=== PATIENT | female | born 1995 | race Caucasian/White ===

== ENCOUNTER 2016-09-30 09:02 | Emergency (ER) | payer BC, OTHER ==
[~2016-09-30 09:02] MED LIST: CALC300T5 PO; FAMO-63 PO; HYDR-971 PO
[2016-09-30] MEDS ORDERED: IV NORMAL SALINE 1,000ML 1,000 ML IV SCH (09:45)
[2016-09-30 09:51] LABS: BASO # 0.1 x10^3/uL (0.0-0.2); BASO % 1 % (0-3); EOS # 0.1 x10^3/uL (0.0-0.7); EOS % 2 % (0-3); HEMATOCRIT 42.3 % (36.0-47.0); HEMOGLOBIN 14.3 g/dL (12.0-15.5); LYMPH # 2.4 x10^3/uL (1.0-4.8); LYMPH % 36 % (24-48); MEAN CORPUSCULAR HEMOGLOBIN 28 pg (25-35); MEAN CORPUSCULAR HGB CONC 34 g/dL (31-37); MEAN CORPUSCULAR VOLUME 83 fL (79-100); MONO # 0.4 x10^3/uL (0.0-1.1); MONO % 6 % (0-9); NEUT # 3.6 x10^3uL (1.8-7.7); NEUT % 55 % (31-73); PLATELET COUNT 168 x10^3/uL (140-400); RED BLOOD COUNT 5.13 x10^6/uL (3.50-5.40); RED CELL DISTRIBUTION WIDTH 16.1 % (11.5-14.5); WHITE BLOOD COUNT 6.5 x10^3/uL (4.0-11.0)
[2016-09-30] MEDS ORDERED: IOHEXOL 300 MG/ML 75 ML VIAL. IV ONE (10:00)
[2016-09-30 10:02] LABS: ALBUMIN 4.1 g/dL (3.4-5.0); ALBUMIN/GLOBULIN RATIO 1.2 (1.0-1.7); CALCIUM 9.5 mg/dL (8.5-10.1); CREATININE 0.7 mg/dL (0.6-1.0); GFR 103.7; POTASSIUM 3.9 mmol/L (3.5-5.1); TOTAL BILIRUBIN 0.2 mg/dL (0.2-1.0); TOTAL PROTEIN 7.4 g/dL (6.4-8.2)
[2016-09-30] MEDS ORDERED: CONTRAST GIVEN MC PRN (10:15)
[2016-09-30 10:38] LABS: BACTERIA,URINE MOD /HPF (0-FEW); BILIRUBIN,URINE NEG (NEG); CLARITY,URINE HAZY; COLOR,URINE YELLOW; GLUCOSE,URINE NEG (NEG); NITRITE,URINE NEG (NEG); SQUAMOUS EPITHELIAL CELL,UR MOD /LPF; UROBILINOGEN,URINE 0.2 mg/dL (0.2 mg/dL)
--- NOTE | 2016-09-30 10:59 | PHYS DOC ---
Past History Past Medical History: No Pertinent History Past Surgical History: Smoking: Less than 1pk/day Alcohol Use: None Drug Use: None Adult General Chief Complaint Chief Complaint: ABDOMINAL PAIN HPI HPI This 21-year-old lady presents with abdominal pain for the past 2 weeks. She states her abdominal pain has been diffuse. She states she had fever last week and can't sleep or eat because of the pain. She is currently on her menstrual period. She denies any dysuria. She denies vaginal discharge. She does not think she is Review of Systems Review of Systems Constitutional: Denies fever or chills [] Eyes: Denies change in visual acuity, redness, or eye pain [] HENT: Denies nasal congestion or sore throat [] Respiratory: Denies cough or shortness of breath [] Cardiovascular: No additional information not addressed in HPI [] GI: See history of present illness [] : Denies dysuria or hematuria [] Musculoskeletal: Denies back pain or joint pain [] Integument: Denies rash or skin lesions [] Neurologic: Denies headache, focal weakness or sensory changes [] Endocrine: Denies polyuria or polydipsia [] Current Medications Current Medications Current Medications Medications (Trade) Dose Ordered Sig/Toy Start Time Stop Time Status Last Admin Dose Admin Info (Do NOT chart on this entry -- for MONITORING) 1 each PRN DAILY PRN 09/30/16 10:15 10/02/16 10:14 Iohexol (Omnipaque 300 Mg/ml) 75 ml 1X ONCE 09/30/16 10:00 09/30/16 10:01 DC 09/30/16 10:47 75 ML Sodium Chloride 1,000 ml @ 1,000 mls/hr Q1H 09/30/16 09:45 09/30/16 10:44 DC Allergies Allergies Allergies Coded Allergies Type Severity Reaction Last Updated Verified Penicillins Allergy Intermediate hives 05/05/16 Yes amoxicillin Allergy Intermediate hives 05/05/16 Yes morphine Allergy Intermediate rash 02/26/16 Yes codeine Allergy Unknown throat swelling 02/26/16 Yes Physical Exam Physical Exam Constitutional: Well developed, well nourished, no acute distress, non-toxic appearance. [] HENT: Normocephalic, atraumatic, bilateral external ears normal, oropharynx moist, no oral exudates, nose normal. [] Eyes: PERRLA, EOMI, conjunctiva normal, no discharge. [] Neck: Normal range of motion, no tenderness, supple, no stridor. [] Cardiovascular:Heart rate regular rhythm, no murmur [] Lungs & Thorax: Bilateral breath sounds clear to auscultation [] Abdomen: Bowel sounds are normal patient has some tenderness in the left mid abdomen and left lower quadrant there is no rebound or guarding Skin: Warm, dry, no erythema, no rash. [] Back: No tenderness, no CVA tenderness. [] Extremities: No tenderness, no cyanosis, no clubbing, ROM intact, no edema. [] Neurologic: Alert and oriented X 3, normal motor function, normal sensory function, no focal deficits noted. [] Psychologic: Affect normal, judgement normal, mood normal. [] Pelvic examination reveals there is some blood in the vault, cervix is closed and there is no cervical motion tenderness to movement The right adnexa feels clear the left adnexa is tender but I feel no masses Current Patient Data Lab Results Laboratory Tests Test 09/30/16 09:39 09/30/16 10:05 White Blood Count 6.5 x10^3/uL (4.0-11.0) Red Blood Count 5.13 x10^6/uL (3.50-5.40) Hemoglobin 14.3 g/dL (12.0-15.5) Hematocrit 42.3 % (36.0-47.0) Mean Corpuscular Volume 83 fL (79-100) Mean Corpuscular Hemoglobin 28 pg (25-35) Mean Corpuscular Hemoglobin Concent 34 g/dL (31-37) Red Cell Distribution Width 16.1 % (11.5-14.5) H Platelet Count 168 x10^3/uL (140-400) Neutrophils (%) (Auto) 55 % (31-73) Lymphocytes (%) (Auto) 36 % (24-48) Monocytes (%) (Auto) 6 % (0-9) Eosinophils (%) (Auto) 2 % (0-3) Basophils (%) (Auto) 1 % (0-3) Neutrophils # (Auto) 3.6 x10^3uL (1.8-7.7) Lymphocytes # (Auto) 2.4 x10^3/uL (1.0-4.8) Monocytes # (Auto) 0.4 x10^3/uL (0.0-1.1) Eosinophils # (Auto) 0.1 x10^3/uL (0.0-0.7) Basophils # (Auto) 0.1 x10^3/uL (0.0-0.2) Sodium Level 141 mmol/L (136-145) Potassium Level 3.9 mmol/L (3.5-5.1) Chloride Level 106 mmol/L (98-107) Carbon Dioxide Level 26 mmol/L (21-32) Anion Gap 9 (6-14) Blood Urea Nitrogen 9 mg/dL (7-20) Creatinine 0.7 mg/dL (0.6-1.0) Estimated GFR (Cockcroft-Gault) 103.7 BUN/Creatinine Ratio 13 (6-20) Glucose Level 94 mg/dL (70-99) Calcium Level 9.5 mg/dL (8.5-10.1) Total Bilirubin 0.2 mg/dL (0.2-1.0) Aspartate Amino Transferase (AST) 9 U/L (15-37) L Alanine Aminotransferase (ALT) 15 U/L (14-59) Alkaline Phosphatase 83 U/L (46-116) Total Protein 7.4 g/dL (6.4-8.2) Albumin 4.1 g/dL (3.4-5.0) Albumin/Globulin Ratio 1.2 (1.0-1.7) Lipase 59 U/L (73-393) L Urine Collection Type U cath Urine Color Yellow Urine Clarity Hazy Urine pH 5.5 Urine Specific [place] 1.025 Urine Protein Neg (NEG-TRACE) Urine Glucose (UA) Neg mg/dL (NEG) Urine Ketones (Stick) Neg mg/dL (NEG) Urine Blood Trace (NEG) Urine Nitrite Neg (NEG) Urine Bilirubin Neg (NEG) Urine Urobilinogen Dipstick 0.2 mg/dL (0.2 mg/dL) Urine Leukocyte Esterase Neg (NEG) Urine RBC 3-5 /HPF (0-2) Urine WBC 5-10 /HPF (0-4) Urine Squamous Epithelial Cells Mod /LPF Urine Bacteria Mod /HPF (0-FEW) Urine Mucus Marked /LPF EKG EKG [] Radiology/Procedures Radiology/Procedures [] Impressions: Abdominal pain UTI Course & Med Decision Making Course & Med Decision Making Patient presents with abdominal pain which is more in the left side Her examination reveals some slight left-sided abdominal tenderness Her CBC is normal her urinalysis shows 5-10 white cells per high-power field CT scan of the abdomen and pelvis is negative Patient be placed on Cipro Hydrocodone/APAP Rest and follow-up with her doctor [] Nico Disclaimer Dragon Disclaimer This chart was dictated in whole or in part using Voice Recognition software in a busy, high-work load, and often noisy Emergency Department environment. It may contain unintended and wholly unrecognized errors or omissions. Departure Departure: Referrals: HIMANSHU FRANCO (PCP) ANGELINE LEON MD September 30, 2016 10:59
--- NOTE | 2016-09-30 11:11 | RAD ---
CT of the abdomen and pelvis with contrast, 09/30/2016: History: Left-sided abdominal pain with nausea and vomiting Multidetector CT imaging was performed following an IV bolus injection of iodinated contrast material. No oral contrast material was administered for this study. Comparison is made to a study from 02/26/2016. There is a tiny subcentimeter low-density lesion in the inferior aspect of the right lobe liver. It is too small to definitively characterize, but is probably a cyst. The gallbladder is unremarkable. No pancreatic abnormality is seen. The spleen is of normal size. No renal or adrenal abnormality is detected. The aorta is unremarkable. No abdominal or pelvic adenopathy is seen. The uterus and ovaries are unremarkable. The bowel loops are not dilated. The appendix shows no abnormality. No free fluid or free air is evident in the abdomen or pelvis. IMPRESSION: No acute abdominal or pelvic abnormality is detected. PQRS Compliance Statement: One or more of the following individualized dose reduction techniques were utilized for this examination: 1. Automated exposure control 2. Adjustment of the mA and/or kV according to patient size 3. Use of iterative reconstruction technique
[2016-09-30] MEDS ORDERED: HYDR-2758 PO (11:30)
[2016-09-30] MEDS ORDERED: CIPR500T94 PO (11:32)
[2016-09-30 11:58] VITALS: BP 110/78
== END 2016-09-30 12:13 | disposition home or self-care (01) ==
LOC: ER 09:02
DX: N39.0 Urinary tract infection, site not specified (principal); F17.200 Nicotine dependence, unspecified, uncomplicated; Z98.890 Other specified postprocedural states; Z88.5 Allergy status to narcotic agent; Z88.1 Allergy status to other antibiotic agents; Z88.0 Allergy status to penicillin
CPT/HCPCS: 36415; 51701; 74177; 80053; 81001; 83690; 85027; 87086; 96360; 99285; Q9967; J7030

== ENCOUNTER 2016-10-16 10:47 | Emergency (ER) | payer BC ==
[~2016-10-16 10:47] MED LIST changes: +CIPR500T94 PO; +HYDR-2758 PO
[2016-10-16] MEDS ORDERED: PROMETHAZINE 25 MG/ML VIAL IV ONE (11:31)
[2016-10-16] MEDS ORDERED: IV NORMAL SALINE 50ML 50 ML ONE (11:31)
[2016-10-16 11:42] LABS: BASO # 0.1 x10^3/uL (0.0-0.2); BASO % 1 % (0-3); EOS # 0.1 x10^3/uL (0.0-0.7); EOS % 1 % (0-3); HEMATOCRIT 42.1 % (36.0-47.0); LYMPH % 16 % (24-48); MEAN CORPUSCULAR HEMOGLOBIN 27 pg (25-35); MEAN CORPUSCULAR HGB CONC 33 g/dL (31-37); MEAN CORPUSCULAR VOLUME 82 fL (79-100); MONO # 0.8 x10^3/uL (0.0-1.1); MONO % 6 % (0-9); NEUT # 10.1 x10^3uL (1.8-7.7); NEUT % 77 % (31-73); PLATELET COUNT 174 x10^3/uL (140-400); RED BLOOD COUNT 5.13 x10^6/uL (3.50-5.40); RED CELL DISTRIBUTION WIDTH 16.3 % (11.5-14.5); WHITE BLOOD COUNT 13.1 x10^3/uL (4.0-11.0)
[2016-10-16 11:48] LABS: ALBUMIN/GLOBULIN RATIO 1.2 (1.0-1.7); CALCIUM 9.4 mg/dL (8.5-10.1); CREATININE 0.6 mg/dL (0.6-1.0); GFR 123.9; TOTAL BILIRUBIN 0.3 mg/dL (0.2-1.0); TOTAL PROTEIN 7.4 g/dL (6.4-8.2)
[2016-10-16 11:49] LABS: POTASSIUM 3.9 mmol/L (3.5-5.1)
[2016-10-16] MEDS ORDERED: ONDANSETRON PF 4 MG/2 ML VIAL. IV ONE ×2 (12:00→20:00)
[2016-10-16] MEDS ORDERED: KETOROLAC 30 MG/ML VIAL. IV ONE (12:00)
[2016-10-16] MEDS ORDERED: DICYCLOMINE 20 MG/2 ML AMPUL. IM ONE (12:00)
[2016-10-16] MEDS ORDERED: LIDO:MAALOX 1:1 20 ML SINGLE DOSE PO ONE (12:00)
[2016-10-16] MEDS ORDERED: FAMOTIDINE 20 MG/2 ML VIAL IVP ONE (12:00)
[2016-10-16] MEDS ORDERED: PROMETHAZINE 25 MG in IV NORMAL SALINE 50ML 50 ML IV PRN (12:00)
--- NOTE | 2016-10-16 12:09 | RAD ---
Abdomen series with chest, 3 views, 10/16/2016: History: Abdominal pain with nausea and vomiting Gas is present in large and small bowel without significant bowel distention. Several small air-fluid levels are noted in the right midabdomen. No free air seen in the abdomen. There is no evidence of organomegaly or abnormal abdominal calcification. The heart size is normal. The lungs are clear. There is no evidence of pleural fluid. IMPRESSION: 1. Several air-fluid levels in the right midabdomen suggest a mild localized ileus. 2. The abdomen series is otherwise unremarkable.
--- NOTE | 2016-10-16 12:33 | PHYS DOC ---
General Chief Complaint: ABDOMINAL PAIN Stated Complaint: ABD PAIN Time Seen by MD: 11:03 Source: patient, old records Exam Limitations: no limitations Problems: History of Present Illness Initial Comments Patient is a 21-year-old female who returns complaining of abdominal pain. Patient was seen last week for similar symptoms, she states that this morning she developed severe epigastric pain. She denies travel or exotic by mouth intake, no vomiting or diarrhea no fever chills sweats or myalgias no chest pain or trouble breathing. Patient is crying as I enter the exam room clutching at her abdomen as if in severe pain. Patient is known to ED staff, her RN walked in to the department from the parking lot with her and they struck up a conversation. The patient told RN that she was coming due to abdominal pain and "I ran out of hydrocodone." RN states the patient was walking upright she was smiling without any evidence of severe discomfort. Timing/Duration: unsure Severity: severe Modifying Factors: improves with other Associated Symptoms: other Allergies: Coded Allergies: Penicillins (Verified Allergy, Intermediate, hives, 05/05/16) amoxicillin (Verified Allergy, Intermediate, hives, 05/05/16) morphine (Verified Allergy, Intermediate, rash, 02/26/16) codeine (Verified Allergy, Unknown, throat swelling, 02/26/16) "TOLERATED LORTAB IN THE PAST" per patient interview by ED RN Past Medical History Medical History: no pertinent history, other (anxiety, depression) Surgical History: noncontributory Family History Significant Family History: no pertinent family hx Social History Smoker: cigarettes Alcohol: occasionally Drugs: none Review of Systems Constitutional: denies chills, denies diaphoresis, denies fever, denies malaise Respiratory: denies cough, denies shortness of breath Cardiovascular: denies chest pain Gastrointestinal: see HPI Genitourinary: denies discharge, denies frequency, denies pain Musculoskeletal: denies back pain, denies joint swelling, denies muscle pain, denies neck pain Psychiatric/Neurological: denies headache, denies numbness, denies paresthesia Hematologic/Lymphatic: denies blood clots, denies easy bleeding, denies easy bruising Physical Exam General Appearance: WD/WN, no apparent distress (cries in exam room initially) Eyes: bilateral eye normal inspection, bilateral eye PERRL, bilateral eye EOMI Ear, Nose, Throat: hearing grossly normal, normal ENT inspection, normal pharynx Neck: non-tender, supple Respiratory: normal breath sounds, no respiratory distress Cardiovascular: normal peripheral pulses, regular rate, rhythm Gastrointestinal: normal bowel sounds, non tender, soft, no organomegaly, no pulsatile mass Rectal: deferred Back: no CVA tenderness, no vertebral tenderness Extremities: non-tender, normal inspection Neurologic/Psychiatric: talent acquisition specialist II-XII nml as tested, no motor/sensory deficits, alert, normal mood/affect, oriented x 3 Skin: normal color, warm/dry Orders, Labs, Meds PATIENT: SILVANA FERGUSON ACCOUNT: [id number] : 1995 LOCATION: ER AGE: 21 SEX: F EXAM STATUS: REG ER ORD. PHYSICIAN: BRIGID BASURTO DO REASON: abdominal pain PROCEDURE: ACUTE ABDOMEN SERIES Abdomen series with chest, 3 views, 10/16/2016: History: Abdominal pain with nausea and vomiting Gas is present in large and small bowel without significant bowel distention. Several small air-fluid levels are noted in the right midabdomen. No free air seen in the abdomen. There is no evidence of organomegaly or abnormal abdominal calcification. The heart size is normal. The lungs are clear. There is no evidence of pleural fluid. IMPRESSION: 1. Several air-fluid levels in the right midabdomen suggest a mild localized ileus. 2. The abdomen series is otherwise unremarkable. DICTATED AND SIGNED BY: RENUKA ALONZO MD DATE: 10/16/16 1207 CC: HIMANSHU FRANCO; BRIGID BASURTO DO ~ Reassuring ED workup. No new or progressive symptoms. Patient advised to stop smoking she expressed agreement and understanding with treatment plan Departure Time of Disposition: 12:54 Disposition: 01 HOME, SELF-CARE Diagnosis: gastroenteritis, marijuana abuse, tobaccoism Condition: GOOD Patient Instructions: Marijuana Abuse and Chemical Dependency, Smoking Hazards , Viral Gastroenteritis, [id number] Additional Instructions: Stop smoking, seek medical assistance if necessary. OTC probiotics or cultured yogurt (danimals, gogurt) daily. OTC tylenol as needed. Discontinue marijuana abuse, significant medical assistance if necessary. Clear liquids, advance slowly to a bland diet tomorrow as tolerated. Aggressive hydration with Gatorade or water. Prescriptions: Zofran ODT, dicyclomine Follow up with your doctor next week if not better. May need further nonemergent workup as an outpatient with gastroenterology and/or general surgery. Return to the ED with new or changing symptoms BRIGID BASURTO DO Oct 16, 2016 12:32
[2016-10-16 12:43] LABS: AMPHETAMINE/METHAMPHETAMINE NEG (NEG); BARBITURATES NEG (NEG); BENZODIAZEPINES NEG (NEG); CANNABINOIDS POS (NEG); COCAINE NEG (NEG); METHADONE NEG (NEG); OPIATES NEG (NEG); PHENCYCLIDINE NEG (NEG)
[2016-10-16 12:44] LABS: BILIRUBIN,URINE NEG (NEG); CLARITY,URINE HAZY; COLOR,URINE YELLOW; GLUCOSE,URINE NEG (NEG); NITRITE,URINE NEG (NEG); UROBILINOGEN,URINE 0.2 mg/dL (0.2 mg/dL)
[2016-10-16 12:45] LABS: BACTERIA,URINE FEW /HPF (0-FEW); RBC,URINE 0 /HPF (0-2); SQUAMOUS EPITHELIAL CELL,UR MANY /LPF
[2016-10-16 14:09] VITALS: BP 108/64
== END 2016-10-16 13:05 | disposition home or self-care (01) ==
LOC: ER 10:47
DX: K52.9 Noninfective gastroenteritis and colitis, unspecified (principal); F12.10 Cannabis abuse, uncomplicated; F17.210 Nicotine dependence, cigarettes, uncomplicated; Z88.5 Allergy status to narcotic agent; Z88.6 Allergy status to analgesic agent; Z88.1 Allergy status to other antibiotic agents; Z88.0 Allergy status to penicillin
CPT/HCPCS: 36415; 74022; 80053; 80305; 80320; 81001; 83690; 85027; 96365; 96372; 96375; 99285; J0500; J1885; J2405; J2550; S0028; G0481

== ENCOUNTER 2018-02-19 09:56 | Emergency (ER) | payer BC ==
[~2018-02-19] VITALS: Ht 157.5 cm; Wt 54.4 kg
[2018-02-19] MEDS ORDERED: IV NORMAL SALINE 1,000ML 1,000 ML IV ONE (11:15)
[2018-02-19 11:30] VITALS: BP 116/72
[2018-02-19 11:31] LABS: BASO # 0.1 x10^3/uL (0.0-0.2); BASO % 1 % (0-3); EOS # 0.1 x10^3/uL (0.0-0.7); EOS % 1 % (0-3); HEMATOCRIT 45.3 % (36.0-47.0); HEMOGLOBIN 15.1 g/dL (12.0-15.5); LYMPH # 2.6 x10^3/uL (1.0-4.8); LYMPH % 27 % (24-48); MEAN CORPUSCULAR HEMOGLOBIN 29 pg (25-35); MEAN CORPUSCULAR HGB CONC 33 g/dL (31-37); MEAN CORPUSCULAR VOLUME 87 fL (79-100); MONO # 0.4 x10^3/uL (0.0-1.1); MONO % 5 % (0-9); NEUT # 6.5 x10^3uL (1.8-7.7); NEUT % 67 % (31-73); PLATELET COUNT 212 x10^3/uL (140-400); RED BLOOD COUNT 5.22 x10^6/uL (3.50-5.40); RED CELL DISTRIBUTION WIDTH 14.1 % (11.5-14.5); WHITE BLOOD COUNT 9.7 x10^3/uL (4.0-11.0)
--- NOTE | 2018-02-19 11:36 | PHYS DOC ---
Past History Past Medical History: Anxiety, Depression Past Surgical History: Smoking: Less than 1pk/day Alcohol Use: Occasionally Drug Use: None Adult General Chief Complaint Chief Complaint: CHEST WALL PAIN HPI HPI 22-year-old female presents with left-sided chest wall pain and cough. Patient states she was having a little bit of congestion and minor cough with no production yesterday. She woke up this morning with aching pain in her chest that is made much worse with coughing. She feels "run down" even though she slept all night. She has had viral illnesses in the past, but she has not had chest discomfort with deep breathing and coughing before. She denies fever or chills. No history of pneumonia. Review of Systems Review of Systems Constitutional: Denies fever or chills [] Eyes: Denies change in visual acuity, redness, or eye pain [] HENT: Denies nasal congestion or sore throat [] Respiratory: Cough [] Cardiovascular: No additional information not addressed in HPI [] GI: Denies abdominal pain, nausea, vomiting, bloody stools or diarrhea [] : Denies dysuria or hematuria [] Musculoskeletal: Chest wall pain[] Integument: Denies rash or skin lesions [] Neurologic: Denies headache, focal weakness or sensory changes [] Endocrine: Denies polyuria or polydipsia [] All other systems were reviewed and found to be within normal limits, except as documented in this note. Current Medications Current Medications Current Medications Medications (Trade) Dose Ordered Sig/Toy Start Time Stop Time Status Last Admin Dose Admin Ondansetron HCl (Zofran) 4 mg 1X ONCE 02/19/18 11:55 02/19/18 11:56 Sodium Chloride 1,000 ml @ 1,000 mls/hr 1X ONCE 02/19/18 11:15 02/19/18 12:14 Allergies Allergies Allergies Coded Allergies Type Severity Reaction Last Updated Verified Penicillins Allergy Intermediate hives 05/05/16 Yes amoxicillin Allergy Intermediate hives 05/05/16 Yes morphine Allergy Intermediate rash 02/26/16 Yes codeine Allergy Unknown throat swelling 02/26/16 Yes Physical Exam Physical Exam Constitutional: Well developed, well nourished, no acute distress, non-toxic appearance. [] HENT: Normocephalic, atraumatic, bilateral external ears normal, oropharynx moist, no oral exudates, nose normal. [] Eyes: PERRLA, EOMI, conjunctiva normal, no discharge. [] Neck: Normal range of motion, no tenderness, supple, no stridor. [] Cardiovascular:Heart rate regular rhythm, no murmur [] Lungs & Thorax: Bilateral breath sounds clear to auscultation [] Abdomen: Bowel sounds normal, soft, no tenderness, no masses, no pulsatile masses. [] Skin: Warm, dry, no erythema, no rash. [] Back: No tenderness, no CVA tenderness. [] Extremities: No tenderness, no cyanosis, no clubbing, ROM intact, no edema. [] Neurologic: Alert and oriented X 3, normal motor function, normal sensory function, no focal deficits noted. [] Psychologic: Affect normal, judgement normal, mood normal. [] Current Patient Data Vital Signs Vital Signs Date Time Temp Pulse Resp B/P (MAP) Pulse Ox O2 Delivery O2 Flow Rate FiO2 02/19/18 10:01 98.2 88 18 97 Room Air Lab Results Laboratory Tests Test 02/19/18 11:21 White Blood Count 9.7 x10^3/uL (4.0-11.0) Red Blood Count 5.22 x10^6/uL (3.50-5.40) Hemoglobin 15.1 g/dL (12.0-15.5) Hematocrit 45.3 % (36.0-47.0) Mean Corpuscular Volume 87 fL (79-100) Mean Corpuscular Hemoglobin 29 pg (25-35) Mean Corpuscular Hemoglobin Concent 33 g/dL (31-37) Red Cell Distribution Width 14.1 % (11.5-14.5) Platelet Count 212 x10^3/uL (140-400) Neutrophils (%) (Auto) 67 % (31-73) Lymphocytes (%) (Auto) 27 % (24-48) Monocytes (%) (Auto) 5 % (0-9) Eosinophils (%) (Auto) 1 % (0-3) Basophils (%) (Auto) 1 % (0-3) Neutrophils # (Auto) 6.5 x10^3uL (1.8-7.7) Lymphocytes # (Auto) 2.6 x10^3/uL (1.0-4.8) Monocytes # (Auto) 0.4 x10^3/uL (0.0-1.1) Eosinophils # (Auto) 0.1 x10^3/uL (0.0-0.7) Basophils # (Auto) 0.1 x10^3/uL (0.0-0.2) EKG EKG [] Radiology/Procedures Radiology/Procedures [] Course & Med Decision Making Course & Med Decision Making Pertinent Labs and Imaging studies reviewed. (See chart for details) The patient's vital signs are unremarkable. Her chest x-ray is unremarkable. Her labs are unremarkable. The patient is as a viral illness the chest discomfort is due to coughing and generalized body aches. She is stable for discharge at this time. [] Dragon Disclaimer Dragon Disclaimer This electronic medical record was generated, in whole or in part, using a voice recognition dictation system. Departure Departure: Referrals: HIMANSHU FRANCO (PCP) RICH CONDON DO Feb 19, 2018 11:36
[2018-02-19 11:40] LABS: CALCIUM 9.3 mg/dL (8.5-10.1); CREATININE 0.6 mg/dL (0.6-1.0); GFR 122.8; POTASSIUM 3.8 mmol/L (3.5-5.1)
--- NOTE | 2018-02-19 11:43 | RAD ---
EXAM: PA and Lateral Views of the Chest DATE: 02/19/2018 11:15 AM INDICATION: CHEST PAIN ABOVE LEFT BREAST ONSET YESTERDAY COMPARISON: No Prior FINDINGS: The heart is not enlarged. Mediastinal and hilar contours are normal. No focal parenchymal airspace opacity. No pleural effusion or pneumothorax. IMPRESSION: 1. No radiographic evidence for acute cardiopulmonary process. Electronically signed by: Alex Alfaro MD (02/19/2018 11:40 AM) [id number]
[2018-02-19] MEDS ORDERED: ONDA4TAB10 SL (11:51)
[2018-02-19] MEDS ORDERED: ONDANSETRON PF 4 MG/2 ML VIAL. IV ONE (11:55)
== END 2018-02-19 11:57 | disposition home or self-care (01) ==
LOC: ER 09:56
DX: R07.89 Other chest pain (principal); B34.8 Other viral infections of unspecified site; F41.9 Anxiety disorder, unspecified; F32.9 Major depressive disorder, single episode, unspecified; F17.200 Nicotine dependence, unspecified, uncomplicated; Z88.0 Allergy status to penicillin; Z88.1 Allergy status to other antibiotic agents; Z88.5 Allergy status to narcotic agent
CPT/HCPCS: 36415; 71046; 80048; 85025; 96374; 99285; J2405; J7030

== ENCOUNTER 2019-01-11 23:29 | Emergency (ER) | payer BC ==
[~2019-01-11] VITALS: Ht 157.5 cm; Wt 54.4 kg
[~2019-01-11 23:29] MED LIST changes: +HYDR-2155 PO; -HYDR-2758 PO; +HYDR-3165 PO; -HYDR-971 PO; +ONDA4TAB10 SL
[2019-01-11 23:38] VITALS: BP 123/70
[2019-01-11] MEDS ORDERED: CLIN300C8 PO (23:46)
[2019-01-11] MEDS ORDERED: HYDR-3165 PO (23:46)
--- NOTE | 2019-01-11 23:47 | PHYS DOC ---
Past History Past Medical History: Anxiety, Depression Past Surgical History: Smoking: Less than 1pk/day Alcohol Use: Occasionally Drug Use: None Adult General HPI HPI Patient is a 23-year-old female presents with a toothache. She states left lower back tooth has really been bothering her over the last 24 hours. She denies any fever. She denies any facial swelling or redness. She states she has had trouble with her teeth for many years.[] Review of Systems Review of Systems Constitutional: Denies fever or chills [] Eyes: Denies change in visual acuity, redness, or eye pain [] HENT: Dental pain[] Respiratory: Denies cough or shortness of breath [] Cardiovascular: No additional information not addressed in HPI [] GI: Denies abdominal pain, nausea, vomiting, bloody stools or diarrhea [] : Denies dysuria or hematuria [] Musculoskeletal: Denies back pain or joint pain [] Integument: Denies rash or skin lesions [] Neurologic: Denies headache, focal weakness or sensory changes [] Endocrine: Denies polyuria or polydipsia [] All other systems were reviewed and found to be within normal limits, except as documented in this note. Allergies Allergies Allergies Coded Allergies Type Severity Reaction Last Updated Verified Penicillins Allergy Intermediate hives 05/05/16 Yes amoxicillin Allergy Intermediate hives 05/05/16 Yes morphine Allergy Intermediate rash 02/26/16 Yes codeine Allergy Unknown throat swelling 02/26/16 Yes Physical Exam Physical Exam Constitutional: Well developed, well nourished, no acute distress, non-toxic appearance. [] HENT: Left lower second molar is extremely carious with surrounding gingival erythema no obvious abscess[] Eyes: PERRLA, EOMI, conjunctiva normal, no discharge. [] Neck: Normal range of motion, no tenderness, supple, no stridor. [] Cardiovascular:Heart rate regular rhythm, no murmur [] Lungs & Thorax: Bilateral breath sounds clear to auscultation [] Abdomen: Bowel sounds normal, soft, no tenderness, no masses, no pulsatile masses. [] Skin: Warm, dry, no erythema, no rash. [] Back: No tenderness, no CVA tenderness. [] Extremities: No tenderness, no cyanosis, no clubbing, ROM intact, no edema. [] Neurologic: Alert and oriented X 3, normal motor function, normal sensory function, no focal deficits noted. [] Psychologic: Affect normal, judgement normal, mood normal. [] EKG EKG [] Radiology/Procedures Radiology/Procedures [] Course & Med Decision Making Course & Med Decision Making Pertinent Labs and Imaging studies reviewed. (See chart for details) [] Dragon Disclaimer Dragon Disclaimer This electronic medical record was generated, in whole or in part, using a voice recognition dictation system. Departure Departure: Impression: Primary Impression: Pain, dental Disposition: HOME, SELF-CARE Condition: STABLE Referrals: HIMANSHU FRANCO (PCP) Patient Instructions: Dental Abscess Additional Instructions: Follow with a dentist as soon as possible. Return to the emergency department with any new or concerning symptoms Scripts Hydrocodone Bit/Acetaminophen (NORCO 5-325 TABLET) 1 Each Tablet 1-2 TAB PO Q4-6HRS for PAIN, #10 TAB Prov: SANYA HURST DO 01/11/19 Clindamycin Hcl (CLINDAMYCIN HCL) 300 Mg Capsule 1 CAP PO TID for infection, #30 CAP Prov: SANYA HURST DO 01/11/19 SANYA HURST DO Jan 11, 2019 23:46
== END 2019-01-11 23:49 | disposition home or self-care (01) ==
LOC: ER 23:29
DX: K08.89 Other specified disorders of teeth and supporting structures (principal); F17.200 Nicotine dependence, unspecified, uncomplicated; Z88.0 Allergy status to penicillin; Z88.1 Allergy status to other antibiotic agents; Z88.5 Allergy status to narcotic agent
CPT/HCPCS: 99283

== ENCOUNTER 2019-07-19 11:05 | Emergency (ER) | payer BC ==
[~2019-07-19] VITALS: Ht 157.5 cm; Wt 56.2 kg
[~2019-07-19 11:05] MED LIST changes: +CLIN300C8 PO
[2019-07-19] MEDS ORDERED: KETOROLAC 30 MG/ML VIAL. ONE (11:43)
[2019-07-19 11:45] LABS: BACTERIA,URINE 0 /HPF (0-FEW); BILIRUBIN,URINE NEG (NEG); CLARITY,URINE CLEAR; COLOR,URINE YELLOW; GLUCOSE,URINE NEG (NEG); NITRITE,URINE NEG (NEG); RBC,URINE 0 /HPF (0-2); SQUAMOUS EPITHELIAL CELL,UR OCC /LPF; UROBILINOGEN,URINE 0.2 mg/dL (0.2 mg/dL); WBC,URINE OCC /HPF (0-4)
[2019-07-19] MEDS ORDERED: KETOROLAC 30 MG/ML VIAL. IM ONE (12:00)
--- NOTE | 2019-07-19 12:49 | RAD ---
US PELVIS W/TV History: Left lower quadrant pain Comparison: None. Findings: Multiple transabdominal sonographic images of pelvis are submitted. Uterus is estimated about 7.8 x 4.4 cm, although uterus poorly visualized. Ovaries are not seen. Multiple transvaginal vaginal sonographic images of the pelvis are submitted. There is nabothian cyst. There is minimal free fluid in the pelvis. Uterus measured about 3.8 cm x 5.7 x 6.1 cm. Endometrium measured 0.8 cm in thickness. Right ovary measured 2.5 x 2.4 x 3 cm, normal color flow and low resistance vascularity. Left ovary measured 4 x 2.3 x 2.2 cm with normal color flow and low resistance vascularity. There is a hypoechoic lesion with increased through transmission of the left ovary up to 1.1 cm maximal dimension. Impression: 1. There is small left ovarian cyst/dominant follicle, very minimal free fluid in the pelvis. There is no sonographic evidence of ovarian torsion. Electronically signed by: Sohail Barriga MD (07/19/2019 12:46 PM) [id number]
--- NOTE | 2019-07-19 13:00 | PHYS DOC ---
Past History Past Medical History: No Pertinent History Past Surgical History: Smoking: Less than 1pk/day Alcohol Use: Occasionally Drug Use: None Adult General Chief Complaint Chief Complaint: ABDOMINAL PAIN HPI HPI Patient is a [age] year old [sex] who presents with [] Review of Systems Review of Systems Constitutional: Denies fever or chills [] Eyes: Denies change in visual acuity, redness, or eye pain [] HENT: Denies nasal congestion or sore throat [] Respiratory: Denies cough or shortness of breath [] Cardiovascular: No additional information not addressed in HPI [] GI: Denies abdominal pain, nausea, vomiting, bloody stools or diarrhea [] : Denies dysuria or hematuria [] Musculoskeletal: Denies back pain or joint pain [] Integument: Denies rash or skin lesions [] Neurologic: Denies headache, focal weakness or sensory changes [] Endocrine: Denies polyuria or polydipsia [] All other systems were reviewed and found to be within normal limits, except as documented in this note. Current Medications Current Medications Current Medications Medications (Trade) Dose Ordered Sig/Toy Start Time Stop Time Status Last Admin Dose Admin Ketorolac Tromethamine (Toradol 30mg Vial) 30 mg STK-MED ONCE 07/19/19 11:43 07/19/19 11:45 DC Allergies Allergies Allergies Coded Allergies Type Severity Reaction Last Updated Verified Penicillins Allergy Intermediate hives 05/05/16 Yes amoxicillin Allergy Intermediate hives 05/05/16 Yes morphine Allergy Intermediate rash 02/26/16 Yes codeine Allergy Unknown throat swelling 02/26/16 Yes Physical Exam Physical Exam Constitutional: Well developed, well nourished, no acute distress, non-toxic appearance. [] HENT: Normocephalic, atraumatic, bilateral external ears normal, oropharynx moist, no oral exudates, nose normal. [] Eyes: PERRLA, EOMI, conjunctiva normal, no discharge. [] Neck: Normal range of motion, no tenderness, supple, no stridor. [] Cardiovascular:Heart rate regular rhythm, no murmur [] Lungs & Thorax: Bilateral breath sounds clear to auscultation [] Abdomen: Bowel sounds normal, soft, no tenderness, no masses, no pulsatile masses. [] Skin: Warm, dry, no erythema, no rash. [] Back: No tenderness, no CVA tenderness. [] Extremities: No tenderness, no cyanosis, no clubbing, ROM intact, no edema. [] Neurologic: Alert and oriented X 3, normal motor function, normal sensory function, no focal deficits noted. [] Psychologic: Affect normal, judgement normal, mood normal. [] Current Patient Data Vital Signs Vital Signs Date Time Temp Pulse Resp B/P (MAP) Pulse Ox O2 Delivery O2 Flow Rate FiO2 07/19/19 11:15 98.2 76 16 106/78 (87) 99 Room Air Lab Results Laboratory Tests Test 07/19/19 11:23 07/19/19 11:25 Urine Collection Type Unknown Urine Color Yellow Urine Clarity Clear Urine pH 7.0 Urine Specific [place] 1.020 Urine Protein Neg (NEG-TRACE) Urine Glucose (UA) Neg mg/dL (NEG) Urine Ketones (Stick) Neg mg/dL (NEG) Urine Blood Neg (NEG) Urine Nitrite Neg (NEG) Urine Bilirubin Neg (NEG) Urine Urobilinogen Dipstick 0.2 mg/dL (0.2 mg/dL) Urine Leukocyte Esterase Neg (NEG) Urine RBC 0 /HPF (0-2) Urine WBC Occ /HPF (0-4) Urine Squamous Epithelial Cells Occ /LPF Urine Bacteria 0 /HPF (0-FEW) POC Urine HCG, Qualitative hcg negative (Negative) EKG EKG [] Radiology/Procedures Radiology/Procedures PROCEDURE: US PELVIS W/TV History: Left lower quadrant pain Comparison: None. Findings: Multiple transabdominal sonographic images of pelvis are submitted. Uterus is estimated about 7.8 x 4.4 cm, although uterus poorly visualized. Ovaries are not seen. Multiple transvaginal vaginal sonographic images of the pelvis are submitted. There is nabothian cyst. There is minimal free fluid in the pelvis. Uterus measured about 3.8 cm x 5.7 x 6.1 cm. Endometrium measured 0.8 cm in thickness. Right ovary measured 2.5 x 2.4 x 3 cm, normal color flow and low resistance vascularity. Left ovary measured 4 x 2.3 x 2.2 cm with normal color flow and low resistance vascularity. There is a hypoechoic lesion with increased through transmission of the left ovary up to 1.1 cm maximal dimension. Impression: 1. There is small left ovarian cyst/dominant follicle, very minimal free fluid in the pelvis. There is no sonographic evidence of ovarian torsion. Electronically signed by: Sohail Barriga MD (07/19/2019 12:46 PM) [id number] Course & Med Decision Making Course & Med Decision Making Pertinent Labs and Imaging studies reviewed. (See chart for details) [] Dragon Disclaimer Dragon Disclaimer This electronic medical record was generated, in whole or in part, using a voice recognition dictation system. Departure Departure: Impression: Primary Impression: Pelvic pain Additional Impression: Ovarian cyst Disposition: HOME, SELF-CARE Condition: STABLE Referrals: HIMANSHU FRANCO (PCP) Patient Instructions: Ovarian Cyst, [id number], Pelvic Pain, Female, Easy-to- Read Additional Instructions: Use over the counter Tylenol and/or Ibuprofen for pain and discomfort. Problem Qualifiers Additional Impression: Ovarian cyst Laterality: left Qualified Codes: N83.202 - Unspecified ovarian cyst, left side SHIRLEY YAO DO Jul 19, 2019 13:00
[2019-07-19 14:55] VITALS: BP 104/74
[2019-07-22 13:08] LABS: CHLAMYDIA PROBE Negative (Negative)
== END 2019-07-19 13:35 | disposition home or self-care (01) ==
LOC: ER 11:05
DX: N83.202 Unspecified ovarian cyst, left side (principal); F17.200 Nicotine dependence, unspecified, uncomplicated; Z88.0 Allergy status to penicillin; Z88.1 Allergy status to other antibiotic agents; Z88.5 Allergy status to narcotic agent
CPT/HCPCS: 36415; 76830; 76856; 81001; 81025; 87491; 87591; 96372; 99284; J1885; Q0111

== ENCOUNTER → 2020-03-08 | Emergency (ER) | payer BC ==
[~2020-03-08] VITALS: Ht 157.5 cm; Wt 54.0 kg
[2020-03-08 14:00] VITALS: BP 106/68
== END ==
LOC: ER 13:18
DX: R52 Pain, unspecified (principal); Z53.21 Procedure and treatment not carried out due to patient leaving prior to being seen by health care provider

== ENCOUNTER 2020-10-14 02:00 | Emergency (ER) | payer SELFPAY ==
[~2020-10-14] VITALS: Ht 157.5 cm; Wt 54.0 kg
[~2020-10-14 02:00] MED LIST changes: -CLIN300C8 PO; +CLIN300C9 PO
[2020-10-14 02:05] VITALS: BP 122/48
--- NOTE | 2020-10-14 02:18 | PHYS DOC ---
Past History Past Medical History: No Pertinent History Past Surgical History: Smoking: Less than 1pk/day Alcohol Use: Rarely Drug Use: None Adult General Chief Complaint Chief Complaint: ELBOW PROBLEM HPI HPI Patient is an otherwise healthy 25-year-old female that presents with left elbow pain, 8 out of 10, dull and achy in nature after attempting a back flip at home and landing on an outstretched arm. Denies any other injuries, loss of consciousness, neck pain, chest pain, shortness of breath, abdominal pain, nausea, vomiting. Denies any numbness/weakness/tingling. Review of Systems Review of Systems Review of systems otherwise unremarkable except noted in HPI Current Medications Current Medications Current Medications Medications (Trade) Dose Ordered Sig/Toy Start Time Stop Time Status Last Admin Dose Admin Fentanyl Citrate (Fentanyl 2ml Vial) 100 mcg STK-MED ONCE 10/14/20 02:15 10/14/20 02:15 DC Allergies Allergies Allergies Coded Allergies Type Severity Reaction Last Updated Verified Penicillins Allergy Intermediate hives 10/14/20 Yes amoxicillin Allergy Intermediate hives 10/14/20 Yes morphine Allergy Intermediate rash 10/14/20 Yes codeine Allergy Unknown throat swelling 10/14/20 Yes Physical Exam Physical Exam Constitutional: Well developed, well nourished, no acute distress, non-toxic appearance. [] HENT: Normocephalic, atraumatic, Neck: Normal range of motion, no tenderness, Cardiovascular:Heart rate regular rhythm, no murmur [] Lungs & Thorax: No respiratory distress or chest tenderness Abdomen: soft, no tenderness, Back: No tenderness, Extremities: Tenderness around left elbow with no obvious bruising or deformities. Pain with passive range of motion of elbow. Neurovascular exam intact. Neurologic: Alert and oriented X 3, normal motor function, normal sensory function, able to sit, stand and walk without issue no focal deficits noted. [] Psychologic: Affect normal, judgement normal, mood normal. [] EKG EKG [] Radiology/Procedures Radiology/Procedures [] XR ELBOW COMPLETE_LEFT 3+VIEWS History: Reason: fall / Spl. Instructions: / History: Technique: 3 views left elbow Comparison: None. Findings: Posterior elbow soft tissue swelling. Normal alignment. No fracture. No significant elbow joint effusion. Impression: 1. No acute osseous abnormality. 2. Posterior elbow soft tissue swelling. Electronically signed by: Fausto Sultana DO (10/14/2020 2:41 AM) LATOYASHAHID R SHOULDER_LEFT 2+ VIEWS History: Reason: fall / Spl. Instructions: / History: . Pain Technique: 3 views left shoulder Comparison: None. Findings: Normal alignment. No fracture. Impression: 1. No acute osseous abnormality. Electronically signed by: Fausto Sultana DO (10/14/2020 2:40 AM) [facility] Heart Score C/O Chest Pain: No Risk Factors: Risk Factors: DM, Current or recent (<one month) smoker, HTN, HLP, family history of CAD, obesity. Risk Scores: Risk Factors: DM, Current or recent (<one month) smoker, HTN, HLP, family history of CAD, obesity. Course & Med Decision Making Course & Med Decision Making Patient is a 25-year-old female who presents with left elbow pain after attempting a back flip and landing on outstretched arm Vital signs not concerning. Physical exam noted above. Given IM fentanyl for pain. Imaging with no acute osseous abnormalities. Discussed differential of dislocated and relocated elbow versus sprain. Gave Toradol shot. Placed patient in a sling. Gave pain recommendations for home. Advised to follow-up with primary care as needed. Gave return precautions to the ED. Family grateful, verbalized understanding and agreed with plan of discharge. [] Dragon Disclaimer Dragon Disclaimer This electronic medical record was generated, in whole or in part, using a voice recognition dictation system. Departure Departure: Impression: Primary Impression: Elbow pain Disposition: HOME / SELF CARE / HOMELESS Condition: GOOD Referrals: HIMANSHU FRANCO (PCP) Patient Instructions: Arm Sling Use-Brief, RICE - Routine Care for Injuries Additional Instructions: Please read all the attached information very carefully. Please keep the sling on as much as possible to help reduce pain and prevent further injury. Please begin a Tylenol, and ibuprofen regimen in the morning when you get home as well as ice as discussed. Please contact your primary care physician as needed. Please come back to the ED with new or concerning symptoms as discussed. MOSHE JACINTO MD Oct 14, 2020 02:18
--- NOTE | 2020-10-14 02:42 | RAD ---
XR SHOULDER_LEFT 2+ VIEWS History: Reason: fall / Spl. Instructions: / History: . Pain Technique: 3 views left shoulder Comparison: None. Findings: Normal alignment. No fracture. Impression: 1. No acute osseous abnormality. Electronically signed by: Fausto Sultana DO (10/14/2020 2:40 AM) [facility]
--- NOTE | 2020-10-14 02:43 | RAD ---
XR ELBOW COMPLETE_LEFT 3+VIEWS History: Reason: fall / Spl. Instructions: / History: Technique: 3 views left elbow Comparison: None. Findings: Posterior elbow soft tissue swelling. Normal alignment. No fracture. No significant elbow joint effus ion. Impression: 1. No acute osseous abnormality. 2. Posterior elbow soft tissue swelling. Electronically signed by: Fausto Sultana DO (10/14/2020 2:41 AM) [facility]
[2020-10-14] MEDS ORDERED: KETOROLAC 30 MG/ML VIAL. IM ONE (03:00)
== END 2020-10-14 03:05 | disposition home or self-care (01) ==
LOC: ER 02:00
DX: M25.522 Pain in left elbow (principal); F17.200 Nicotine dependence, unspecified, uncomplicated; Z88.5 Allergy status to narcotic agent; Z88.8 Allergy status to other drugs, medicaments and biological substances; Z88.0 Allergy status to penicillin; Z88.1 Allergy status to other antibiotic agents
CPT/HCPCS: 73030; 73080; 96372; 99284; J1885; J3010

== ENCOUNTER 2020-10-18 11:42 | Emergency (ER) | payer SELFPAY ==
[~2020-10-18] VITALS: Ht 157.5 cm; Wt 54.0 kg
[2020-10-18 12:29] VITALS: BP 109/69
[2020-10-18] MEDS ORDERED: KETOROLAC 60 MG/2 ML VIAL. IM ONE (12:30)
[2020-10-18] MEDS ORDERED: ONDANSETRON ODT 4 MG TAB.RAPDIS PO ONE (13:00)
--- NOTE | 2020-10-18 13:13 | PHYS DOC ---
Past History Past Medical History: Other Additional Past Medical Histor: endometriosis, PCOS (SHIRLEY JIMENEZ APRN) Past Surgical History: No Surgical History, (SHIRLEY JIMENEZ APRN) Smoking: Less than 1pk/day Alcohol Use: Occasionally Drug Use: None (SHIRLEY JIMENEZ APRN) Adult General Chief Complaint Chief Complaint: ELBOW PROBLEM HPI HPI Patient is a 25-year-old female who returns to the emergency department today complaining of increased elbow pain with swelling and bruising that she rates a 10 out of 10, reports it is dull and achy in nature. Patient was initially seen here on October 142020 after reporting doing back flips at home and dislocated her left elbow, patient reports self reducing her elbow prior to arrival to the emergency department that day. Patient denies any other physical complaints or physical symptoms, denies any numbness or tingling to her left elbow or left upper extremity. Patient states the pain has progressed to her left shoulder and down her left forearm. Patient reports it is harder to move around. Patient reports she has been using her sling as directed, has been applying ice packs 30 minutes on and 30 minutes off while awake. Patient states she has taken 800 mg of Motrin this morning at home for pain which did not seem to help. Patient reports her last menstrual cycle was a week ago normal duration of flow. Patient states she takes no prescription medications, is allergic to amoxicillin and penicillin and codeine. Patient reports being a cigarette smoker, drinks occasionally, smokes marijuana occasionally. Patient reports her primary care provider is THAD Patten. Patient states she has not made an appointment to see an head orthopedic team physician as directed by the previous ED provider that seen her on 14 October 2020. (SHRILEY JIMENEZ APRN) Review of Systems Review of Systems 14 body systems of review of systems have been reviewed. See HPI for pertinent positives and negative responses, otherwise all other systems are negative, nonpertinent or noncontributory. (SHIRLEY JIMENEZ APRN) Current Medications Current Medications Current Medications Medications (Trade) Dose Ordered Sig/Toy Start Time Stop Time Status Last Admin Dose Admin Fentanyl Citrate (Fentanyl 2ml Vial) 100 mcg 1X ONCE 10/18/20 12:30 10/18/20 12:31 DC 10/18/20 12:54 100 MCG Ketorolac Tromethamine (Toradol Im) 60 mg 1X ONCE 10/18/20 12:30 10/18/20 12:31 DC 10/18/20 12:53 60 MG Ondansetron HCl (Zofran Odt) 4 mg 1X ONCE 10/18/20 13:00 10/18/20 13:01 DC 10/18/20 12:53 4 MG (SHIRLEY JIMENEZ APRN) Allergies Allergies Allergies Coded Allergies Type Severity Reaction Last Updated Verified codeine Allergy Severe throat swelling 10/14/20 Yes Penicillins Allergy Intermediate hives 10/14/20 Yes amoxicillin Allergy Intermediate hives 10/14/20 Yes morphine Allergy Intermediate rash 10/14/20 Yes (SHIRLEY JIMENEZ APRN) Physical Exam Physical Exam Constitutional: Well developed, well nourished, mild distress, non-toxic appe arance. Patient sitting in bed with sling on left upper extremity bracing with right upper extremity. HENT: Normocephalic, atraumatic. Eyes: Conjunctiva normal, no discharge. Neck: Normal range of motion. Cardiovascular: No cyanosis, distal cap refill less than 2 seconds. Lungs & Thorax: Patient in no respiratory distress, no audible adventitious lung sounds appreciated. Skin: Warm, dry, no erythema, no rash. Back: No tenderness. Extremities: No tenderness, no cyanosis, no clubbing, ROM intact, no edema. Except for left upper extremity elbow, bruising to anterior elbow area and to mid forearm yellow to maroon in color. Tissues soft around elbow forearm and upper arm, no induration appreciated. No loss of sensation appreciated. 2+ brachial pulse, 2+ radial pulse of the left upper extremity. Distal cap refill is less than 2 seconds, full passive range of motion of wrist and fingers and shoulder, limited passive range of motion of elbow related to pain. No crepitus appreciated, swelling around the elbow and proximal forearm appreciated, no pitting edema. The skin is intact. No paresthesias appreciated. Neurologic: Alert and oriented X 3, normal motor function, normal sensory function, no focal deficits noted. Psychologic: Affect normal, judgement normal, mood normal. (SHIRLEY JIMENEZ APRN) Current Patient Data Vital Signs Vital Signs Date Time Temp Pulse Resp B/P (MAP) Pulse Ox O2 Delivery O2 Flow Rate FiO2 10/18/20 12:54 18 99 Room Air 10/18/20 12:29 98.1 89 109/69 (82) (SHIRLEY JIMENEZ APRN) EKG EKG [] (SHIRLEY JIMENEZ APRN) Radiology/Procedures Radiology/Procedures PATIENT: SILVANA FERGUSON ACCOUNT: [id number] : 1995 LOCATION: ER AGE: 25 SEX: F EXAM STATUS: REG ER ORD. PHYSICIAN: SHIRLEY JIMENEZ APRN REASON: increased pain and bruising from previous visit PROCEDURE: ELBOW LEFT 3V LEFT ELBOW AP LATERAL AND OBLIQUE Clinical Indication: Reason: increased pain and bruising from previous visit Comparison: Left elbow, 3 views October 14, 2020. Findings: There is no acute fracture or dislocation. No evidence of joint effusion. There is no radiopaque foreign body. There is new subcutaneous edema of the elbow. There is increased soft tissue swelling posterior to the elbow. IMPRESSION: 1. Increased posterior elbow soft tissue swelling and new subcutaneous edema. 2. No acute fracture or dislocation. Electronically signed by: Rommel Kim MD (10/18/2020 2:04 PM) [id number] DICTATED AND SIGNED BY: ROMMEL KIM MD DATE: 10/18/20 1350 CC: SHIRLEY JIMENEZ APRN; MARLEN CHING DO; HIMANSHU FRANCO PA ~MTH0 0 (SHIRLEY JIMENEZ APRN) Heart Score C/O Chest Pain: No Risk Factors: Risk Factors: DM, Current or recent (<one month) smoker, HTN, HLP, family history of CAD, obesity. Risk Scores: Risk Factors: DM, Current or recent (<one month) smoker, HTN, HLP, family history of CAD, obesity. (SHIRLEY JIMENEZ APRN) Course & Med Decision Making Course & Med Decision Making Pertinent Labs and Imaging studies reviewed. (See chart for details) 25-year-old female, vital signs reviewed, presents emergency department reporting worsening left elbow pain after being seen here on 14 October 2020 after reporting a dislocation of the left elbow with self reduction prior to arrival. Physical presentation concerning increased swelling and bruising that was not indicated on previous providers initial assessment. The tissues around the elbow remain soft, no compartment syndrome appreciated. Will order 60 mg IM Toradol, 100 mcg IM fentanyl for acute pain. Discussed changes with ED attending Dr. Ching who recommended repeat x-ray of the left elbow. The patient has not followed up or made an appointment with an orthopedic surgeon as of yet, the patient reports she does not have medical insurance and is waiting till Thursday until she gets paid so that she may see a medical provider outside of the emergency department. Patient amenable with this plan. X-ray imaging interpreted by house radiologist showed changes from previous elbow x-ray performed on 14 October 2020 with soft tissue swelling and subcutaneous edema negative for fracture no joint effusion was noted. Discussed findings with patient, discussed continue using sling, ice packs 30 minutes on and 30 minutes off while awake. Will order Motrin and [place] for acute pain at home. Strict follow-up with head orthopedic team physician, follow-up with PCP Suman ONEIL tomorrow for ongoing pain management. Return to ER precautions and concerns. Patient had no further questions or concerns and was discharged home without incident. (SHIRLEY JIMENEZ APRN) Course & Med Decision Making I oversaw on the above date of service of this patient and discussed the care with the [facility] P[facility]ER. I agree with the findings, plan of care, and disposition as documented. Electronically signed, Marlen Ching DO (MARLEN CHING DO) Nico Disclaimer Nico Disclaimer This electronic medical record was generated, in whole or in part, using a voice recognition dictation system. (SHIRLEY JIMENEZ APRN) Departure Departure: Impression: Primary Impression: Pain and swelling of left elbow Disposition: 01 HOME / SELF CARE / HOMELESS Condition: GOOD Referrals: HIMANSHU FRANCO (PCP) Patient Instructions: Sling Use After Injury or Surgery Additional Instructions: You were seen today for a reevaluation of your left elbow pain after your reported dislocation and self reduction prior to being seen on 14 October 2020. A reexamination x-ray revealed no fracture of the elbow, it did show swelling of the soft tissues. Please follow-up with an orthopedic surgeon to evaluate your left elbow pain, you may use [facility] orthopedic at [address] [place] [address], [id number], phone number [phone], call today for an appointment to be seen soon. Please follow-up with your primary care provider Suman ONEIL tomorrow for ongoing pain management. Please continue to use ice packs 30 minutes on and 30 minutes off as discussed, please continue to use your sling to your left arm. Please return to the emergency department for worsening symptoms or other concerns. EMERGENCY DEPARTMENT GENERAL DISCHARGE INSTRUCTIONS Thank you for coming to [facility] (ED) today and trusting us with you care. We trust that you had a positivie experience in our Emergency Department. If you wish to speak to the department management, you may call the director at . YOUR FOLLOW UP INSTRUCTIONS ARE FOLLOWS: 1. Do you have a private Doctor? If you do not have a private doctor, please ask for a resource list of physicians or clinics that may be able to assist you with follow up care. 2. The Emergency Physician has interpreted your x-rays. The X-Ray specialist will also review them. If there is a change in the findings, you will be notified in 48 hours when at all possible. 3. A lab test or culture has been done, your results will be reviewed and you will be notified if you need a change in treatment. ADDITIONAL INSTRUCTIONS AND INFORMATION: 1. Your care today has been supervised by a physician who is specially trained in emergency care. Many problems require more than one evaluation for a complete diagnosis and treatment. We recommend that you schedule your follow up appointment as recommended to ensure complete treatment of you illness or injury. If you are unable to obtain follow up care and continue to have a problem, or if your condition worsens, we recommend that you return to the ED. 2. We are not able to safely determine your condition over the phone nor are we able to give sound medical advice over the phone. For these safety reasons, if you call for medical advice we will ask you to come to the ED for further evaluation. 3. If you have any questions regarding these discharge instructions please call the ED at [phone]. SAFETY INFORMATION: In the interest of safety, wellness, and injury prevention; we encourage you to wear your sealbelt, if you smoke; quite smoking, and we encourage family to use a protective helmet for bicycling and other sporting events that present an increased risk for head injury. IF YOUR SYMPTOMS WORSEN OR NEW SYMPTOMS DEVELOP, OR YOU HAVE CONCERNS ABOUT YOUR CONDITION; OR IF YOUR CONDITION WORSENS WHILE YOU ARE WAITING FOR YOUR FOLLOW UP APPOINTMENT; EITHER CONTACT YOUR PRIMARY CARE DOCTOR, THE PHYSICIAN WHOSE NAME AND NUMBER YOU WERE GIVEN, OR RETURN TO THE ED IMMEDIATELY. Scripts Hydrocodone Bit/Acetaminophen (HYDROCODONE-APAP 5-325 ) 1 Each Tablet 1 TAB PO PRN Q6HRS PRN for SEVERE PAIN 7-10, #15 TAB 0 Refills Prov: SHIRLEY JIMENEZ APRN 10/18/20 Ibuprofen (IBUPROFEN) 600 Mg Tablet 600 MG PO Q4-6HRS PRN for PAIN, #30 TAB 0 Refills Prov: SHIRLEY JIMENEZ APRN 10/18/20 SHIRLEY JIMENEZ APRN Oct 18, 2020 13:13 MARLEN CHING DO Oct 19, 2020 07:26
--- NOTE | 2020-10-18 14:06 | RAD ---
LEFT ELBOW AP LATERAL AND OBLIQUE Clinical Indication: Reason: increased pain and bruising from previous visit Comparison: Left elbow, 3 views October 14, 2020. Findings: There is no acute fracture or dislocation. No evidence of joint effusion. There is no radiopaque foreign body. There is new subcutaneous edema of the elbow. There is increased soft tissue swelling posterior to the elbow. IMPRESSION: 1. Increased posterior elbow soft tissue swelling and new subcutaneous edema. 2. No acute fracture or dislocation. Electronically signed by: Rommel Kim MD (10/18/2020 2:04 PM) [id number]
[2020-10-18] MEDS ORDERED: IBUP600T16 PO (14:18)
[2020-10-18] MEDS ORDERED: HYDR-2155 PO (14:18)
== END 2020-10-18 14:20 | disposition home or self-care (01) ==
LOC: ER 11:42
DX: M25.522 Pain in left elbow (principal); F17.200 Nicotine dependence, unspecified, uncomplicated; Z88.0 Allergy status to penicillin; Z88.1 Allergy status to other antibiotic agents; Z88.6 Allergy status to analgesic agent
CPT/HCPCS: 73080; 96372; 99284; J1885; J3010; Q0162; 29240